=== PATIENT | female | born 1970 | race Caucasian/White ===

== ENCOUNTER 2025-01-06 06:00 | Day surgery (SDC) | payer OTHER ==
[~2025-01-06] VITALS: Ht 162 cm; Wt 64.0 kg
[2025-01-06] VITALS (14 sets, daily range): BP systolic 112–165; BP diastolic 71–109
[~2025-01-06 06:00] MED LIST: CELE100 PO; CEPH500 PO; CRUTCH4 USE; HYDACE5 PO; MASOPHEN500 MG PO; NITR100CA PO; PHENA200 PO
[2025-01-06] MEDS ORDERED: Tranexamic Acid 100 ML IV SCH (06:10)
[2025-01-06] MEDS ORDERED: Ropivacaine 0.5% HCl/Pf 123.125 MG,EPINEPHrine HCL 0.25 MG,Ketorolac Tromethamine 15 MG... INFIL SCH (06:10)
[2025-01-06] MEDS ORDERED: Chlorhexidine Mouth Care 15 ML UDC MT SCH (06:10)
[2025-01-06] MEDS ORDERED: CeFAZolin Sodium 2,000 MG in NS 100 ML IV SCH ×2 (06:10→15:45)
[2025-01-06] MEDS ORDERED: Midazolam HCl 1MG / ML 2ML Vial ONE (07:13)
[2025-01-06] MEDS ORDERED: FentaNYL Citrate 50 MCG/ML 2 ML Injection ONE ×3 (07:13→10:13)
[2025-01-06] MEDS ORDERED: Prochlorperazine Edisylate 10 mg Vial IV PRN (07:50)
[2025-01-06] MEDS ORDERED: Magnesium Hydroxide Conc 10 ML UDC PO PRN (07:55)
[2025-01-06] MEDS ORDERED: Metoclopramide HCl 5MG / ML 2ML Vial IV PRN (07:55)
[2025-01-06] MEDS ORDERED: Ondansetron HCl 2 MG / ML 2ML Vial IV PRN ×2 (08:00→08:15)
[2025-01-06] MEDS ORDERED: HYDROmorphone HCl/Pf 1MG SYR IV PRN ×3 (08:00→08:20)
[2025-01-06] MEDS ORDERED: Albuterol 2.5 MG/3 ML VIAL INH PRN (08:20)
[2025-01-06] MEDS ORDERED: FentaNYL Citrate 50 MCG/ML 2 ML Injection IV PRN ×2 (08:20→08:30)
[2025-01-06] MEDS ORDERED: ePHEDrine Sulfate 50 MG/ML 1ML Injection ONE (08:47)
[2025-01-06] MEDS ORDERED: Dexamethasone Sod Phos 10 MG/ML 1ML VIAL ONE (08:47)
--- NOTE | 2025-01-06 10:35 | NUR ---
POST OP ARRIVAL TO SURGICAL UNIT VIA HOSPITAL BED. ALERT, ORIENTED, BUT C/O FEAR OF BECOMING PAINFUL. ASSESSMENT CHARTED. DENIES N/V SO SNACKS & DRINKS GIVEN. WILL MEDICATE ONCE SNACKS ARE EATEN. CRYOTHERAPY IN PLACE.
[2025-01-06] MEDS ORDERED: Ketorolac Tromethamine 15mg Vial IV SCH (12:00)
[2025-01-06] MEDS ORDERED: ASPI81CH PO (14:51)
[2025-01-06] MEDS ORDERED: OXYC5 PO (14:52)
--- NOTE | 2025-01-06 16:15 | NUR ---
DISCHARGE PT WORKED w/ THERAPY. PAIN WELL CONTROLLED. EATING, DRINKING, & VOIDING WELL. POLAR PACK SENT w/ PT. ESCORTED OUT VIA W/C.
== END 2025-01-06 11:00 | disposition home or self-care (01) ==
LOC: ORSCMMR 06:00 → ORD 07:30 → ORSCMMR 07:30 → SURS 10:27 → ORSCMMR 11:00
PROVIDERS: Orthopaedic Surgery
PROC: 0SRB0JZ Replacement of Left Hip Joint with Synthetic Substitute, Open Approach (ICD-10-PCS; principal; 2025-01-06 07:30)
DX: M16.12 Unilateral primary osteoarthritis, left hip (principal)
CPT/HCPCS: 72170; 97110; 97116; 97161; 97530; A9270; C1776; J0166; J0690; J0735; J1100; J1885; J2250; J2704; J2795; J3010; J7120